=== PATIENT | female | born 1935 | race Caucasian/White ===

== ENCOUNTER → 2021-05-25 | Outpatient (CLI) | payer MEDICARE ==
[~2021-05-25] MED LIST: ASPIRIN EC81 MG PO; LIPITOR40 MG PO; LISINOPRIL5 MG PO; LOPRESSOR 25 MG25 MG PO; MEDROL4 MG PO; PLAVIX75 MG PO; TIROSINT50 MCG PO
== END ==
LOC: CT 16:00
DX: R06.02 Shortness of breath (principal); R79.89 Other specified abnormal findings of blood chemistry; I25.10 Atherosclerotic heart disease of native coronary artery without angina pectoris; I51.7 Cardiomegaly
CPT/HCPCS: 71275; Q9967

== ENCOUNTER → 2021-05-30 | Outpatient (CLI) | payer MEDICARE | LOC: HEART 5 14:08 | DX: R93.89 Abnormal findings on diagnostic imaging of other specified body structures (principal) | CPT/HCPCS: 94060; 94729 ==

== ENCOUNTER → 2021-06-29 | Outpatient (CLI) | payer MEDICARE ==
[~2021-06-29] MED LIST changes: +IPRAT-ALBUT 0.5-3 ML INH; +LISINOPRIL10 MG PO; +PROVENTIL HFA6.7 GM INH; +TYLENOL325 MG PO
[2021-06-29 09:25] LABS: RED BLOOD COUNT 5.41 M/UL (4.00-5.10); WHITE BLOOD COUNT 5.2 K/UL (4.5-11.0)
== END | disposition home or self-care (01) ==
LOC: CT 07:57
PROVIDERS: Radiology Diagnostic Radiology
PROC: 0BBJ3ZX Excision of Left Lower Lung Lobe, Percutaneous Approach, Diagnostic (ICD-10-PCS; principal; 2021-06-29)
DX: C34.32 Malignant neoplasm of lower lobe, left bronchus or lung (principal); I10 Essential (primary) hypertension; J95.811 Postprocedural pneumothorax; J95.830 Postprocedural hemorrhage of a respiratory system organ or structure following a respiratory system procedure; J43.9 Emphysema, unspecified; N28.1 Cyst of kidney, acquired; Y83.8 Other surgical procedures as the cause of abnormal reaction of the patient, or of later complication, without mention of misadventure at the time of the procedure
CPT/HCPCS: 71250; 85027; 85610

== ENCOUNTER 2021-06-30 06:50 | Inpatient (IN) | payer MEDICARE, MEDICAID ==
[~2021-06-30] VITALS: Ht 157.5 cm; Wt 46.7 kg
[~2021-06-30 06:50] MED LIST changes: -TYLENOL325 MG PO
[2021-06-30 17:43] LABS: HEMOGLOBIN 9.4 gm/dl (12.3-15.3); RED BLOOD COUNT 5.03 M/UL (4.00-5.10)
[2021-06-30 18:21] LABS: WHITE BLOOD COUNT 7.6 K/UL (4.5-11.0)
[2021-07-01 03:25] LABS: HEMOGLOBIN 9.2 gm/dl (12.3-15.3); WHITE BLOOD COUNT 7.1 K/UL (4.5-11.0)
[2021-07-01 04:08] LABS: BUN/CREATININE RATIO 22 (0-10)
[2021-07-01] MEDS ORDERED: TYLENOL325 MG PO (08:28)
== END 2021-07-01 12:13 | disposition home or self-care (01) | DRG 200 ==
LOC: CT 06:50 → PROG CARE 15:40
PROVIDERS: ADMIT Internal Medicine
PROC: 0BBJ3ZX Excision of Left Lower Lung Lobe, Percutaneous Approach, Diagnostic (ICD-10-PCS; principal; 2021-06-30)
DX: J95.811 Postprocedural pneumothorax (principal); J96.11 Chronic respiratory failure with hypoxia; I10 Essential (primary) hypertension; Z20.822 Contact with and (suspected) exposure to COVID-19; E03.9 Hypothyroidism, unspecified; F41.9 Anxiety disorder, unspecified; E78.5 Hyperlipidemia, unspecified; D50.9 Iron deficiency anemia, unspecified; C10.4 Malignant neoplasm of branchial cleft; J44.9 Chronic obstructive pulmonary disease, unspecified; J84.112 Idiopathic pulmonary fibrosis; Z79.01 Long term (current) use of anticoagulants; Z79.82 Long term (current) use of aspirin; Z95.1 Presence of aortocoronary bypass graft; Z99.81 Dependence on supplemental oxygen; Z95.5 Presence of coronary angioplasty implant and graft; I25.2 Old myocardial infarction; Z87.891 Personal history of nicotine dependence
CPT/HCPCS: 36415; 71045; 80048; 82550; 82553; 82728; 83540; 83550; 84484; 85025; 85027; 94664; 94760; J0360; J2270; J2405

== ENCOUNTER → 2021-07-04 | Outpatient (CLI) | payer MEDICARE ==
[~2021-07-04] MED LIST changes: +TYLENOL325 MG PO
== END ==
LOC: HEART 5 15:17
DX: J44.9 Chronic obstructive pulmonary disease, unspecified (principal); R91.1 Solitary pulmonary nodule
CPT/HCPCS: 71046

== ENCOUNTER → 2021-10-25 | Outpatient (CLI) | payer MEDICARE | LOC: CT 10:29 | DX: C34.32 Malignant neoplasm of lower lobe, left bronchus or lung (principal); D50.9 Iron deficiency anemia, unspecified; R91.8 Other nonspecific abnormal finding of lung field; R91.1 Solitary pulmonary nodule | CPT/HCPCS: 71260; Q9967 ==

== ENCOUNTER 2022-05-01 19:13 | Emergency (ER) | payer MEDICARE ==
[2022-05-01 20:59] LABS: HEMOGLOBIN 14.5 gm/dl (12.3-15.3); RED BLOOD COUNT 5.45 M/UL (4.00-5.10)
== END 2022-05-02 00:55 | disposition home or self-care (01) ==
LOC: ER1 19:13
PROVIDERS: Physician Assistant
DX: M79.89 Other specified soft tissue disorders (principal)
CPT/HCPCS: 36600; 71045; 80053; 82550; 82553; 82803; 84484; 85025; 85379; 93005; 96372; 99284; J1650; Q9967

== ENCOUNTER → 2022-05-03 | Outpatient (CLI) | payer MEDICARE | LOC: US 10:48 | DX: M79.605 Pain in left leg (principal); R22.42 Localized swelling, mass and lump, left lower limb | CPT/HCPCS: 93971 ==